=== PATIENT | male | born 2000 | race Caucasian/White ===

== ENCOUNTER 2024-06-20 04:12 | Emergency (ER) | payer MEDICAID ==
[~2024-06-20] VITALS: Ht 167.6 cm; Wt 70.6 kg
[~2024-06-20 04:12] MED LIST: ESCI10TA PO
[2024-06-20] MEDS: TETanus/Pertussis (Acell)/Diphther VAC/PF (Tdap-Adult) 0.5ml syringe IMVAC ONE (04:25)
[2024-06-20] MEDS ORDERED: NO HOME MEDS (05:08)
[2024-06-20] MEDS: bacitracin 15gm ointment TP ONE (05:42)
[2024-06-20 05:59] VITALS: BP 126/80; PULSE 80; RESP 16; TEMP 97.6; O2SAT 99
== END 2024-06-20 06:02 | disposition home or self-care (01) ==
LOC: ER 04:13
DX: S61.411A Laceration without foreign body of right hand, initial encounter (principal); X58.XXXA Exposure to other specified factors, initial encounter; Y93.89 Activity, other specified; Y92.89 Other specified places as the place of occurrence of the external cause; Y99.8 Other external cause status
CPT/HCPCS: 12002; 73120; 99283; J7030; A6446

== ENCOUNTER 2024-10-30 14:56 | Emergency (ER) | payer MEDICAID ==
[~2024-10-30] VITALS: Ht 170.2 cm; Wt 64.0 kg
[~2024-10-30 14:56] MED LIST changes: -ESCI10TA PO; +NO HOME MEDS
[2024-10-30 15:52] LABS: MEAN PLATELET VOLUME 7.8 FL (7.4-10.4); RED CELL DISTRIBUTION WIDTH 12.8 % (11.5-14.5)
[2024-10-30 16:07] LABS: LEUKOCYTE ESTERASE ,URINE NEGATIVE (Neg); NITRITES, URINE NEGATIVE (Neg); OCCULT BLOOD,URINE NEGATIVE (Neg)
[2024-10-30 16:07] LABS: CREATININE 0.76 MG/DL (0.60-1.10); TOTAL CARBON DIOXIDE 26.2 MMOL/L (24-32); eCRCL 135 ML/MIN; eGFR > 90 ML/MIN
[2024-10-30 16:11] LABS: UA COLLECTION TYPE NON-SPECIFIED
[2024-10-30 16:16] LABS: SQUAMOUS EPITHELIAL CELL,UR FEW /LPF (FEW)
[2024-10-30 16:17] LABS: FINE GRANULAR CAST 0-3 /LPF (NEGATIVE); HYALINE CASTS 0-3 /LPF (NEGATIVE)
[2024-10-30 17:00] VITALS: TEMP 98.9
--- NOTE | 2024-10-30 17:03 | Physician Documentation ---
History of Present Illness Chief Complaint: Abdominal Pain w/vomiting Stated Complaint: THROWING UP BLOOD Time Seen by MD: 17:02 Primary Medical Doctor: None Mode of Arrival: POV, Ambulatory HPI Patient is seen today with complaints of acute onset of nausea vomiting including emesis of coffee-grounds this morning. Patient states he had too much to drink last night and sometimes this happens after he has too much to drink. Patient also states that he has been smoking marijuana for quite some time. Patient denies any chest pain or shortness of breath and has no other concern or complaint at this time. He does complain of some epigastric abdominal discomfort and cramping likely from vomiting. Medication Reconciliation Allergies: Coded Allergies: No Known Allergies (Unverified , 10/30/24) Miscellaneous Medications Home Med List (No Home Medications), (Reported) Past Medical History Past Medical History: Depression Past Surgical History: no surgical history Drug Use: marijuana Lives with: Family Lives In: Home Occupation: student Review of Systems Constitutional: Denies: chills, fever, weakness Eyes: Denies: pain, blurred vision ENT: Denies: ear pain, nose pain, throat pain, mouth pain Respiratory: Denies: cough, shortness of breath Cardiovascular: Denies: chest pain, palpitations Gastrointestinal: Denies: abdominal pain, nausea, vomiting Genitourinary: Denies: burning, dysuria Male Genitalia: Denies: penile discharge, testicular pain Neurological: Denies: headache, dizziness Musculoskeletal: Denies: pain, swelling Integumentary: Denies: rash, lesions Allergic/Immunologic: Denies: hives, itching Hematologic/Lymphatic: Denies: no symptoms reported Psychiatric: Denies: depression, anxiety Physical Exam Vital Signs: Temperature: 98.9, Source: Temporal, Heart Rate: 66, Respiratory Rate: 18, BP: 115/89, Pulse Oximetry: 99, Weight: 64.000 Oxygen Flow Rate: 0 Physical Exam General: Awake and Alert, no acute distress. HEENT: Conjunctiva pink, Sclera clear, Mucus Membranes moist. Neck: Supple without masses and tenderness. Resp: Unlabored. Lungs clear to auscultation bilaterally. Heart: Regular Rate and rhythm, normal S1 and S2 without murmur, rub or gallop. Abdomen: Soft and non tender no organomegaly Extremities: No cyanosis,clubbing or edema. Skin: Warm and Dry. Progress Results/Orders Results/Orders Vital Signs 10/30/24 10/30/24 15:04 16:52 Temp 98.9 Pulse 66 Resp 18 18 B/P (MAP) 115/89 Pulse Ox 99 O2 Flow Rate 0 Laboratory Tests Test 10/30/24 15:43 10/30/24 15:55 White Blood Count 13.2 H Red Blood Count 5.16 Hemoglobin 16.4 Hematocrit 47.3 Mean Corpuscular Volume 91.7 Mean Corpuscular Hemoglobin 31.8 H Mean Corpuscular Hemoglobin Concent 34.7 Red Cell Distribution Width 12.8 Platelet Count 396 Mean Platelet Volume 7.8 Neutrophils (%) (Auto) 81.8 H Lymphocytes (%) (Auto) 12.9 L Monocytes (%) (Auto) 4.6 Eosinophils (%) (Auto) 0.4 Basophils (%) (Auto) 0.3 Neutrophils # (Auto) 10.8 H Lymphocytes # (Auto) 1.7 Monocytes # (Auto) 0.6 Eosinophils # (Auto) 0.1 Basophils # (Auto) 0.0 CBC Comment Sodium Level 143 Potassium Level 4.5 Chloride Level 104 Carbon Dioxide Level 26.2 Anion Gap 13 Blood Urea Nitrogen 10 Creatinine 0.76 Estimated GFR/1.73 m2 > 90 BUN/Creatinine Ratio 13.2 Glucose Level 125 H Calcium Level 9.2 Total Bilirubin 0.5 Aspartate Amino Transf (AST/SGOT) 23 Alanine Aminotransferase (ALT/SGPT) 36 Alkaline Phosphatase 57 Total Protein 7.7 Albumin 4.3 Globulin 3.4 Albumin/Globulin Ratio 1.3 Lipase 16 Chemistry Comments Urine Specimen Description Non-specified Urine Color Yellow Urine Clarity Clear Urine pH >=9.0 Urine Specific Mclean 1.015 Urine Protein 30 H Urine Glucose (UA) Negative Urine Ketones Negative Urine Occult Blood Negative Urine Nitrite Negative Urine Bilirubin Negative Urine Urobilinogen 0.2 Urine Leukocyte Esterase Negative Urine RBC 0-2 Urine WBC 0-4 Urine Squamous Epithelial Cells Few Urine Bacteria 1+ Urine Hyaline Casts 0-3 Urine Fine Granular Casts 0-3 Urine Culture Indicated Not ind Volume Urine Centrifuged 10 ml Urine Comment Medical Decision Making Findings Patient is seen today with complaints of acute onset of nausea vomiting including emesis of coffee-grounds this morning. Patient states he had too much to drink last night and sometimes this happens after he has too much to drink. Patient also states that he has been smoking marijuana for quite some time. Patient denies any chest pain or shortness of breath and has no other concern or complaint at this time. He does complain of some epigastric abdominal discomfort and cramping likely from vomiting. Patient's labs are unremarkable and patient's history indicates possible cannabinoid hyperemesis syndrome or complications from acute alcohol intoxication. Patient was given Zyprexa 10 mg IM, Compazine 10 mg IV, 1 L of fluid IV and patient states he is now feeling much better in his ready to go home. Patient was discharged on Zofran 4 mg ODT tablets and Zyprexa 10 mg tablets to be taken at night only as needed. Patient was instructed to discontinue consumption of alcohol and cannabis use. Departure Disposition: 01 HOME / SELF CARE / HOMELESS Impression: Primary Impression: Acute gastritis Qualified Codes: K29.21 - Alcoholic gastritis with bleeding Condition: Improved Discharge Instructions: Gastritis, Adult Additional Instructions: Patient's labs are unremarkable and patient's history indicates possible cannabinoid hyperemesis syndrome or complications from acute alcohol intoxication. Patient was given Zyprexa 10 mg IM, Compazine 10 mg IV, 1 L of fluid IV and patient states he is now feeling much better in his ready to go home. Patient was discharged on Zofran 4 mg ODT tablets and Zyprexa 10 mg tablets to be taken at night only as needed. Patient was instructed to discontinue consumption of alcohol and cannabis use. Referrals: NO PRIMARY CARE PROVIDER (PCP) Prescriptions Olanzapine (Olanzapine) 10 Mg Tablet 1 TAB PO HS for 7 Days, #7 TAB 0 Refills Prov: FERNANDO ROBIN 10/30/24 ONDANSETRON ODT 4mg tablet (ONDANSETRON ODT) 4 Mg Tab.rapdis 4 MG PO BID for 7 Days, #14 TAB Prov: FERNANDO ROBIN 10/30/24 Signature Scribe Signature: No scribe Attestation: No scribe FERNANDO ROBIN Oct 30, 2024 17:03
[2024-10-30] MEDS: normal saline 1000ml 1,000 ML IV ONE (17:26)
[2024-10-30] MEDS: OLANZapine **IM** 10 mg inj. IM STA (17:41)
[2024-10-30] MEDS ORDERED: ONDA-243 PO (18:46)
[2024-10-30] MEDS ORDERED: OLAN-38 PO (18:46)
[2024-10-30 19:02] VITALS: BP 95/52; PULSE 91; RESP 18; O2SAT 99
== END 2024-10-30 19:04 | disposition home or self-care (01) ==
LOC: ER 14:57
DX: K29.00 Acute gastritis without bleeding (principal)
CPT/HCPCS: 36415; 80053; 81001; 83690; 85025; 96361; 96372; 96374; 99284; J0780; J3490; J7030